=== PATIENT | female | born 1960 | race Two or more races ===

== ENCOUNTER 2017-11-10 08:12 | Emergency (ER) | payer OTHER ==
[~2017-11-10] VITALS: Ht 162.6 cm; Wt 72.6 kg
[~2017-11-10 08:12] MED LIST: ACID CONTROLLER20 MG PO; ALBUTEROL17 G1; AMOX1TAB5 PO; AMOXICILLIN125 MG; ASA81 MG PO; ATORVASTATIN CA40 MG PO; CIPRO500 MG PO; GAS RELIEF125 M1 PO; GLIPIZIDE2.5 MG/BO1; LEVSIN/SL0.125 MG; LEVSIN/SL0.125 MG PO; LOSARTAN POTAS100 MG; LOTRISONE CREAM45 GM TOP; LOVAZA1 GM PO; METFORMIN HCL1000 MG; PERCOCET 5-3251 EACH PO; PROTONIX40 MG PO; RESTORA CAPSUL1 EACH PO; SYNTHROID112 MCG PO; TENORMIN25 MG PO; ULTRACET PO; ULTRAM ER100 MG; [UNRECOGNIZED DRUG - OTHER] PO
[2017-11-10] MEDS ORDERED: CIPRO100 MG (08:27)
[2017-11-10] MEDS ORDERED: QTERN 10 MG-51 EACH (08:28)
== END 2017-11-10 10:14 | disposition home or self-care (01) ==
LOC: ER 08:12
DX: K52.89 Other specified noninfective gastroenteritis and colitis (principal)

== ENCOUNTER 2018-07-27 13:27 | Emergency (ER) | payer OTHER ==
[~2018-07-27] VITALS: Ht 157.5 cm; Wt 74.8 kg
[~2018-07-27 13:27] MED LIST changes: +CIPRO100 MG; +QTERN 10 MG-51 EACH
[2018-07-27] MEDS ORDERED: TOPROL XL50 M1 (13:36)
[2018-07-27] MEDS ORDERED: GLIMEPIRIDE4 MG (13:37)
== END 2018-07-27 22:30 | disposition home or self-care (01) ==
LOC: ER 13:27
DX: J45.998 Other asthma (principal)

== ENCOUNTER 2020-11-26 16:21 | Emergency (ER) | payer OTHER ==
[~2020-11-26] VITALS: Ht 152.4 cm; Wt 77.1 kg
[~2020-11-26 16:21] MED LIST changes: +GLIMEPIRIDE4 MG; +TOPROL XL50 M1
== END 2020-11-26 22:24 | disposition home or self-care (01) ==
LOC: ER 16:21
DX: S92.811A Other fracture of right foot, initial encounter for closed fracture (principal); W10.9XXA Fall (on) (from) unspecified stairs and steps, initial encounter; Y93.89 Activity, other specified; Y92.098 Other place in other non-institutional residence as the place of occurrence of the external cause; Y99.8 Other external cause status

== ENCOUNTER 2021-08-05 14:57 | Emergency (ER) | payer OTHER ==
[~2021-08-05] VITALS: Ht 157.5 cm; Wt 79.4 kg
[2021-08-05] MEDS ORDERED: DICLOFENAC SODI75 MG PO (16:48)
== END 2021-08-05 16:52 | disposition home or self-care (01) ==
LOC: ER 14:57
DX: M77.31 Calcaneal spur, right foot (principal); I10 Essential (primary) hypertension; E11.9 Type 2 diabetes mellitus without complications; Z79.84 Long term (current) use of oral hypoglycemic drugs

== ENCOUNTER → 2022-03-26 | Emergency (ER) | payer OTHER ==
[~2022-03-26] VITALS: Ht 149.9 cm; Wt 79.4 kg
[~2022-03-26] MED LIST changes: +DICLOFENAC SODI75 MG PO
== END | disposition home or self-care (01) ==
LOC: ER 13:26
DX: M54.9 Dorsalgia, unspecified (principal); E11.9 Type 2 diabetes mellitus without complications; Z79.84 Long term (current) use of oral hypoglycemic drugs; I10 Essential (primary) hypertension; Z88.0 Allergy status to penicillin; Z88.8 Allergy status to other drugs, medicaments and biological substances

== ENCOUNTER → 2022-09-14 | Emergency (ER) | payer OTHER ==
[~2022-09-14] VITALS: Ht 162.6 cm; Wt 77.1 kg
== END | disposition home or self-care (01) ==
LOC: ER 11:36
DX: J45.901 Unspecified asthma with (acute) exacerbation (principal); Z20.822 Contact with and (suspected) exposure to COVID-19; Z88.0 Allergy status to penicillin; Z88.8 Allergy status to other drugs, medicaments and biological substances

== ENCOUNTER 2024-02-29 17:11 | Emergency (ER) | payer OTHER ==
[~2024-02-29] VITALS: Ht 160 cm; Wt 79.4 kg
[2024-02-29] MEDS ORDERED: GLUMETZA1000 MG PO (17:35)
[2024-02-29] MEDS ORDERED: GLIPIZIDE XL10 MG PO (17:35)
[2024-02-29] MEDS ORDERED: LASIX20 MG (17:36)
[2024-02-29] MEDS ORDERED: LEVOTHYROXINE75 MCG PO (17:36)
[2024-02-29] MEDS ORDERED: ONDANSETRON HCL 2 MG/ML VIAL IV ONE (19:30)
[2024-02-29] MEDS ORDERED: FAMOTIDINE/PF 20 MG/2 ML VIAL IV ONE (19:30)
[2024-02-29] MEDS ORDERED: 0.9 % SODIUM CHLORIDE 1,000 ML IV ONE (19:30)
[2024-02-29] MEDS ORDERED: INSULIN REGULAR, HUMAN 1,000 UNIT/10 ML UNITS IV ONE (19:30)
[2024-02-29 19:53] LABS: HEMATOCRIT 41.7 % (36.0-45.00); HEMOGLOBIN 14.1 g/dL (12.0-15.00); MEAN CELL VOLUME 80.7 fL (80.00-100.00); MEAN CORPUSCULAR HEMOGLOBIN 27.2 pg (27.00-32.0); MEAN CORPUSCULAR HGB CONC 33.7 g/dl (32.0-36.0); PLATELET COUNT 192 K/uL (150-450); RED BLOOD COUNT 5.17 M/uL (4.00-6.00); RED CELL DISTRIBUTION WIDTH 15.2 % (11.5-14.5)
[2024-02-29 20:30] LABS: BILIRUBIN TOTAL 0.28 mg/dL (0.3-1.2); CREATININE SERUM 1.65 mg/dL (0.55-1.02); GFR 31.32; GLOBULINA 4.1 G/DL (2.4-3.5); POTASSIUM 3.93 mEq/L (3.5-5.1); TOTAL PROTEIN 8.1 gm/dL (6.4-8.2)
[2024-02-29 21:14] LABS: URINE APPEARANCE Cloudy; URINE BILIRRUBIN Negative (NEGATIVE); URINE BLOOD Negative; URINE COLOR Yellow; URINE KETONE Trace (NEGATIVE); URINE LEUKOCYTE Moderate; URINE NITRATE Negative; URINE PROTEIN Negative (NEGATIVE); URINE UROBILINOGEN 0.2 E.U./dl
[2024-02-29 21:18] LABS: URINE BACTERIA 2969.5 uL (0.0-1933); URINE CAST 8.55 uL (0.0-1.40); URINE EPITHELIAL CELLS 52.8 uL (0.0-38.8); URINE RBC 7.3 uL (0.0-20.8); URINE WBC 445.4 uL (0.0-23.2)
[2024-02-29 21:36] LABS: URINE GLUCOSE >=1000 MG/DL (NEGATIVE)
[2024-02-29] MEDS ORDERED: NITROFURANTOIN100 MG PO (22:55)
== END 2024-02-29 23:28 | disposition home or self-care (01) ==
LOC: ER 17:13
PROVIDERS: Nurse Practitioner Family
DX: N39.0 Urinary tract infection, site not specified (principal); R10.31 Right lower quadrant pain; R10.32 Left lower quadrant pain; K76.0 Fatty (change of) liver, not elsewhere classified; Z88.0 Allergy status to penicillin; Z88.8 Allergy status to other drugs, medicaments and biological substances; I10 Essential (primary) hypertension; E11.9 Type 2 diabetes mellitus without complications; Z79.84 Long term (current) use of oral hypoglycemic drugs; E03.9 Hypothyroidism, unspecified